=== PATIENT | male | born 1930 | race Caucasian/White ===

== ENCOUNTER 2016-04-19 13:15 | Emergency (ER) | payer MEDICARE, OTHER ==
[~2016-04-19] VITALS: Ht 176.5 cm; Wt 107.3 kg
[~2016-04-19 13:15] MED LIST: ASP81TEC PO; LEVOXYL150 MCG PO; MVI PO; OMEP20TA86 PO; SAW PALMETTO PO; TERA10CA5 PO; ZINC50TA54 PO; [UNRECOGNIZED DRUG - OTHER]; acetylcysteine
[2016-04-19 13:20] VITALS: BP 129/65; PULSE 72; RESP 16; O2SAT 95
--- NOTE | 2016-04-19 13:52 | ED.REPORT ---
HPI-Extremity Problem Lower Date of Service Apr 19, 2016 ED Provider: Cooper Fitzgerald Patient is a 85 year old male who presents to the ED complaining of L knee pain onset yesterday. Associated symptoms include L knee swelling. He denies numbness , injury, fever, or any other symptoms. He had 1 Ibuprofen and 2 Aspirin this morning. No chest pain, shortness of breath or other respiratory symptoms. Nursing Notes Stated Complaint: LEFT KNEE SWOLLEN, PAINFUL Chief Complaint: Extremity Trauma Nursing Notes Reviewed: Yes Allergies: Coded Allergies: terfenadine (Verified Allergy, Severe, 04/19/16) Scheduled ([[facility] [place] ]) 325 MG PO DAILY Aspirin-Expunged Drug, Do Not Renew! (Aspirin EC-Expunged Drug, Do Not Renew!) 81 Mg Tablet 81 MG PO DAILY Levothyroxine-Expunged Drug, Do Not Renew! (Levoxyl-Expunged Drug, Do Not Renew! ) 150 Mcg Tablet 150 MCG PO DAILY Omeprazole-Expunged Drug, Do Not Renew! (Omeprazole-Expunged Drug, Do Not Renew! ) 20 Mg Tablet.dr 20 MG PO AM Terazosin-Expunged Drug, Do Not Renew! (Hytrin-Expunged Drug, Do Not Renew!) 10 Mg Capsule 10 MG PO HS Therapeutic Multivit/Minerals-Expunged Drug, (Therapeutic Multivit/Minerals- Expunged Drug,) 1 Ea Tab 1 TAB PO DAILY Zinc Amino Acid Chelate (Zinc) 50 Mg Tablet 50 MG PO DAILY Miscellaneous Medications ([acetycysteine ]) ([acetylcysteine]) 600 MG take a dose tonight and tomorrow am. General Time Seen by MD: 13:51 Chief Complaint Other (L knee pain ) Hx Obtained From: Patient, Spouse Arrived By: Walk-in Onset Occurred: Yesterday Symptom Duration: Since onset Exacerbated by: Range of motion Risk-Extremity Prob Lower Well's Criteria for DVT Pit edema sympt leg (1), Altern dx DVT likely (-2) Well's DVT Score: 0 pts (low risk 5%) Past Medical History Past Medical History Heartburn, Nocturia L leg vericosse vein Aortic leaky valve abdominal and thoracic aneurisms Reports: Atrial fibrillation Past Surgical History None reported Smoking History Unknown if Ever Smoker Social History Other Social History: Ambulatory Status Independent Review of Systems Constitutional: Denies: Fever Musculoskeletal: Reports: Joint pain (L knee ), Joint swelling (L knee ) Neurologic: Denies: Numbness Complete sys rev & neg: except as marked. Physical Exam Initial Vital Signs Vital Signs (First) Date Time Temp Pulse Resp B/P Pulse Ox O2 Delivery O2 Flow Rate FiO2 04/19/16 13:20 36.2 72 16 129/65 95 Room Air Initial VS: Reviewed General/Constitutional: Well-developed, Well-nourished Head / Eyes: Atraumatic, Normocephalic Respiratory: No respiratory distress Skin: Warm, Dry Neurologic: Alert, Oriented, Nonfocal Psychiatric: Mood/affect normal, Behavior normal, Normal thought content Lower Extremity / Pelvis / MS: Full range of motion, Neurologic intact, Vascular intact Left Knee: Positive: Swelling present... (Mild), Warmth present Edema above L knee Ankle / Foot: Atraumatic Re-Eval/Medical Decision Re-Evaluation/Progress : Time of Eval: 14:19 Re-Evaluation/Progress Note: Discussed plan for discharge. Patient understands and agrees with plan. All questions addressed at this time. Counseled Regarding: Diagnosis, Need for follow-up, When/why to return to ED Discharge & Departure Impression: Primary Impression: Leg edema, left Additional Impression: Effusion, left knee Disposition: Home Patient Instructions: Knee Effusion (ED) Additional Instructions: No blood clot is suspected this time. I recommend increased activity and elevation of the leg (ankles higher than the heart) at least half the time you are seated or lying down. Follow-up next week in the clinic to reassess. For the pain and swelling of the knee I recommend ibuprofen 400 mg every 8 hours Referrals: Thaddeus Preciado MD (PCP) Scribe Attestation Portions of this note were transcribed by Faviola Kramer. I, Dr. Fitzgerald personally performed the history, physical exam and medical decision-making; I reviewed and confirmed the accuracy of the information in the transcribed note. Signed by: Faviola Kramer 04/19/16, 8979 copies to: Thaddeus Preciado MD, Kirk H MD Apr 19, 2016 13:52 FAVIOLA KRAMER Apr 19, 2016 14:02
== END 2016-04-19 14:24 | disposition home or self-care (01) ==
LOC: SED 13:15
DX: M25.562 Pain in left knee (principal); R60.0 Localized edema; M25.462 Effusion, left knee; Z79.82 Long term (current) use of aspirin